=== PATIENT | female | born 1985 | race Caucasian/White ===

== ENCOUNTER 2017-04-20 16:53 | Emergency (ER) | payer SELFPAY ==
[~2017-04-20 16:53] MED LIST: ISOVUE-370 76%-LOCM 1 ML ONE; Iopamidol 370 76% 50 ML VIAL FS ONE
[2017-04-20 17:38] LABS: #Basophils 0.1 thou/uL (0.0-0.2); #Eosinphils 0.2 thou/uL (0.0-0.7); #Lymphocytes 2.2 thou/uL (1.20-3.40); #Monocytes 0.5 thou/uL (0.11-0.59); %Basophils 0.5 % (0.0-1.0); %Eosinophils 1.4 % (0.0-10.0); %Lymphocytes 18.7 % (21.0-51.0); %Monocytes 3.9 % (0.0-10.0); Hematocrit 34.1 % (36.0-47.0); Mean Platelet Volume 7.7 fL (7.4-10.4); Red Blood Cell (RBC) Count 4.23 mill/uL (4.20-5.40); White Blood Cell (WBC) Count 11.9 thou/uL (4.8-10.8)
[2017-04-20 17:59] LABS: Lactic Acid - Sepsis 2.1 mmol/L (0.5-2.2)
[2017-04-20 18:06] LABS: ALT (SGPT) Less than 7 U/L (8-55); AST (SGOT) 9 U/L (5-34); Alkaline Phosphatase 78 U/L (40-150); Anion Gap 16 mmol/L (10-20); BUN (Urea Nitrogen) 13 mg/dL (7.0-18.7); Bilirubin, Total 0.4 mg/dL (0.2-1.2); CK (CPK) 66 U/L (29-168); Calc. Creatinine Clearance 0 mL/min (70-130); Calcium 10.3 mg/dL (7.8-10.44); Carbon Dioxide 28 mmol/L (22-29); Chloride 100 mmol/L (98-107); Estimated GFR-MDRD 82; Globulin 4.5 g/dL (2.4-3.5); Lipase 17 U/L (8-78); Protein, Total 8.9 g/dL (6.0-8.3)
[2017-04-20 18:15] LABS: Bilirubin Moderate (Negative); Blood, Urine Small (Negative); Glucose, Urine (Dipstick) Negative (Negative); Ketone, Urine 15 mg/dL (Negative); Nitrite Negative (Negative); Protein, Urine (Dipstick) 30 mg/dL (Neg-Trace); Urobilinogen 0.2 mg/dL (0.2-1.0)
[2017-04-20 18:25] LABS: Bacteria/HPF 4+ HPF (None Seen)
[2017-04-20 18:35] LABS: RBC/HPF 0-3 HPF (0-3)
[2017-04-20 18:36] LABS: Hyaline Casts/LPF 0-3 HYALINE CAST LPF (0-3 Hyaline)
--- NOTE | 2017-04-20 19:51 | RAD ---
AP VIEW CHEST WELL SUPINE AND UPRIGHT VIEWS ABDOMEN 04/20/17 HISTORY: Constipation for three weeks. AP view chest as well as supine and upright views of the abdomen is obtained. The lungs are well aerated. No evidence of active intrathoracic disease is seen. No evidence of effus ions, pneumonia or pneumothorax seen. ' Two views abdomen demonstrates abdominal gas pattern to be nonspecific. No evidence of obstruction or ileus seen. No dilated loops of bowel seen. IMPRESSION: Unremarkable AP view chest and two views abdomen. Moderate amount of stool is seen in the colon. Inci dentally noted S-shaped thoracolumbar scoliosis is also present. POS: [facility]
--- NOTE | 2017-04-20 22:11 | CT ---
CT OF ABDOMEN AND PELVIS WITH CONTRAST 04/20/17 INDICATION: Intermittent abdominal pain with vomiting. FINDINGS: There is normal caliber of contrast opacified small bowel. A prominent degree of retained fecal mater ial is present throughout the colon. the appendix is not well delineated. No acute abnormality of the solid abdominal organs. Imaged lung bases are clear. No free air. There is extensive wall thickening of the stomach notably at the distal body extending through the region of the pylorus and antral reg ion. This indicates a prominent degree of wall thickening from gastritis. An underlying mass is not e xcluded. No acute osseous pathology. IMPRESSION: 1. Extensive abnormal wall thickening of the stomach. This may relate to an inflammatory gastrit is. The possibility of underlying neoplasm is not excluded. Correlation with gastroenterology consult ation for endoscopy to further assess with direct visualization is warranted. 2. Constipation. 3. Nondelineation of the appendix precluding its assessment. POS: [facility]
[2017-04-20] MEDS ORDERED: Lidocaine Viscous Sol 2% 15 ml UD Cup ONE (22:42)
[2017-04-20] MEDS ORDERED: Mag-Al 1200 mg/1200 mg/30 ML UDCUP ONE (22:42)
== END 2017-04-20 22:50 | disposition home or self-care (01) ==
LOC: ERS 16:53
DX: K29.70 Gastritis, unspecified, without bleeding (principal); F90.9 Attention-deficit hyperactivity disorder, unspecified type; Z79.899 Other long term (current) drug therapy
CPT/HCPCS: 36415; 74022; 74177; 80053; 81003; 81015; 81025; 82150; 82550; 83605; 83690; 85025; 96372

== ENCOUNTER 2018-10-09 00:44 | Inpatient (IN) | payer SELFPAY ==
[2018-10-09 01:16] LABS: Bilirubin Small (Negative); Blood, Urine Large (Negative); Clarity CLOUDY (Clear); Glucose, Urine (Dipstick) Negative (Negative); Leukocyte Negative (Negative); Nitrite Negative (Negative); Protein, Urine (Dipstick) 30 mg/dL (Neg-Trace); Specific Gravity, Urine 1.036 (1.002-1.036)
[2018-10-09] MEDS ORDERED: Lidocaine Viscous Sol 2% 15 ml UD Cup ONE (01:17)
[2018-10-09] MEDS ORDERED: Pantoprazole 40 MG VIAL ONE (01:17)
[2018-10-09] MEDS ORDERED: Ondansetron PF 4 MG/2 ML Vial ONE (01:17)
[2018-10-09] MEDS ORDERED: Mag-Al 1200 mg/1200 mg/30 ML UDCUP ONE (01:17)
[2018-10-09 01:18] LABS: Bacteria/HPF 1+ HPF (None Seen); WBC/HPF 21-50 HPF (0-3)
[2018-10-09 01:23] LABS: ALT (SGPT) 7 U/L (8-55); AST (SGOT) 8 U/L (5-34); Albumin 4.5 g/dL (3.5-5.0); Alkaline Phosphatase 77 U/L (40-150); Anion Gap 14 mmol/L (10-20); BUN (Urea Nitrogen) 9 mg/dL (7.0-18.7); Bilirubin, Total 0.8 mg/dL (0.2-1.2); Calc. Creatinine Clearance 0 mL/min (70-130); Calcium 9.7 mg/dL (7.8-10.44); Carbon Dioxide 27 mmol/L (22-29); Chloride 100 mmol/L (98-107); Estimated GFR-MDRD 90; Globulin 3.4 g/dL (2.4-3.5); Glucose 118 mg/dL (70-105); Lipase 10 U/L (8-78); Potassium 3.6 mmol/L (3.5-5.1); Protein, Total 7.9 g/dL (6.0-8.3); Sodium 137 mmol/L (136-145)
[2018-10-09 01:25] LABS: Pathc Cast-AUWi Flag 2.85 (0-2.49); Pregnancy Test - Urine (BHCG) Negative (Negative); Pregu Control Background? CLEAR/WHITE (CLR/WHITE); Pregu Control Bar Appear? YES (CONTROL BAR); Specific Gravity 1.036 (1.002-1.036)
[2018-10-09 01:33] LABS: Hyaline Casts/LPF NONE SEEN LPF (0-3 Hyaline); RBC/HPF None Seen HPF (0-3)
[2018-10-09 01:38] LABS: #Basophils 0.1 thou/uL (0.0-0.2); #Eosinphils 0.1 thou/uL (0.0-0.7); #Lymphocytes 2.3 thou/uL (1.20-3.40); #Monocytes 0.7 thou/uL (0.11-0.59); #Neutrophils 9.1 thou/uL (1.40-6.50); %Basophils 0.5 % (0.0-1.0); %Eosinophils 0.8 % (0.0-10.0); %Lymphocytes 18.6 % (21.0-51.0); %Monocytes 5.4 % (0.0-10.0); %Neutrophils 74.8 % (42.0-75.0); Anisocytosis MODERATE=16-30 cells (100X) (0-5/hpf); Elliptocytes SLIGHT = 2-5 cells (100X) (0-1/hpf); Hemoglobin 6.4 g/dL (12.0-16.0); Hypochromia SLIGHT = 6-15 cells (100X) (0-5/hpf); MDiff Complete? YES; Mean Corpuscular HGB CONC 27.1 g/dL (32.0-36.0); Mean Corpuscular Hemoglobin 17.1 pg (27.0-31.0); Mean Corpuscular Volume 63.3 fL (78.0-98.0); Mean Platelet Volume 10.6 fL (7.4-10.4); Microcytosis MODERATE=15-30 cells (100X) (0-5/hpf); Platelet Count 534 thou/uL (130-400); RBC Distribution Width 17.9 % (11.5-14.5); Red Blood Cell (RBC) Count 3.74 mill/uL (4.20-5.40); Reflex for Review?? YES; White Blood Cell (WBC) Count 12.2 thou/uL (4.8-10.8)
[2018-10-09 03:56] VITALS: BMI 19.4
[2018-10-09] MEDS ORDERED: Sodium Chloride 0.9% 1,000 ML IV SCH (04:05)
[2018-10-09] MEDS ORDERED: Ondansetron PF 4 MG/2 ML Vial IVP PRN (07:24)
[2018-10-09] MEDS ORDERED: GoLYTELY 4,000 ml Bottle PO SCH (07:45)
[2018-10-09] MEDS: Pantoprazole 40 MG VIAL IVP SCH ×2 (08:09→20:22)
[2018-10-09 11:59] LABS: #Eosinphils 0.2 thou/uL (0.0-0.7); #Lymphocytes 1.8 thou/uL (1.20-3.40); #Monocytes 0.7 thou/uL (0.11-0.59); #Neutrophils 7.4 thou/uL (1.40-6.50); %Basophils 0.2 % (0.0-1.0); %Eosinophils 1.8 % (0.0-10.0); %Lymphocytes 18.1 % (21.0-51.0); %Monocytes 6.9 % (0.0-10.0); %Neutrophils 72.9 % (42.0-75.0); Hemoglobin 8.2 g/dL (12.0-16.0); Mean Corpuscular HGB CONC 30.6 g/dL (32.0-36.0); Mean Corpuscular Hemoglobin 21.5 pg (27.0-31.0); Mean Corpuscular Volume 70.1 fL (78.0-98.0); Mean Platelet Volume 10.1 fL (7.4-10.4); Platelet Count 343 thou/uL (130-400); RBC Distribution Width 21.1 % (11.5-14.5); Red Blood Cell (RBC) Count 3.82 mill/uL (4.20-5.40); White Blood Cell (WBC) Count 10.1 thou/uL (4.8-10.8)
[2018-10-09 12:38] LABS: Hypochromia MODERATE=16-30 cells (100X) (0-5/hpf); MDiff Complete? YES; Microcytosis MODERATE=15-30 cells (100X) (0-5/hpf); Ovalocytes SLIGHT = 2-5 cells (100X) (0-1/hpf); Platelet Morphology Comment Appears Adequate; Polychromasia MODERATE = 3-4 cells (100X) (0-2/hpf)
--- NOTE | 2018-10-09 12:59 | HP ---
HISTORY OF PRESENT ILLNESS: The patient is a 33-year-old female, who presented to the emergency room complaining of upper abdominal pain and discomfort. She states she has had a previous history of gastritis. She states she has been scoped one time. She has no prior history of gastric bleeding. She was found to be severely anemic with no history of reportable melena. She reports multiple episodes of vomiting over the last 4 days. Denies any hematemesis or any coffee-ground material through her vomitus. She reports that she had to come to the hospital soon, because the pain became too acute to manage. She states that she has had a recent history of severe weakness, felt like she does not have greater endurance. She notes that she is getting tired when walking long distances. She notes that she has some heavy periods. In the last 3 to 4 days, she reports some abdominal pain associated with vomiting. No diarrhea. No blood per bowel movement. No hematemesis was noted. She was seen and evaluated in the ER. She has not noted any fever, productive coughing. No recent travel. It is noted that she does take Excedrin fairly frequently. She denies any history of severe alcohol use or abuse. She was given a GI cocktail, which she states relieved her pain almost immediately. She subsequently has been admitted for further evaluation and treatment. She was begun on 1 unit of transfused blood thus far. ALLERGIES: NO KNOWN ALLERGIES. CURRENT MEDICATIONS: 1. Adderall. 2. Prilosec. PAST MEDICAL HISTORY: Medical history is insignificant. PAST SURGICAL HISTORY: Positive for LEEP procedure as well as tubes in ears. SOCIAL PERSONAL HISTORY: She does not smoke. She denies drinking alcohol at this time. Denies drug use. REVIEW OF SYSTEMS: She believes she is not at this time. FAMILY HISTORY: Noncontributory. PHYSICAL EXAMINATION: VITAL SIGNS: Temperature is 97.3, respirations 16, O2 saturation 97%, blood pressure 103/64, and pulse 77 and regular. GENERAL: The patient is alert, active, in no acute distress. HEENT: Normocephalic and atraumatic. Sclerae and conjunctivae are clear. Throat clear. NECK: Supple. Full range of motion. No masses. ABDOMEN: Soft and nontender. Bowel sounds are present and active. There is no hepatosplenomegaly noted. No evidence of rebound or guarding. LUNGS: Clear. HEART: Reveals a regular rate and rhythm. No murmurs, gallops, or rubs. ABDOMEN: Soft. EXTREMITIES: No clubbing, edema, or cyanosis. NEUROLOGICAL: She is alert and oriented x3. LABORATORY DATA: Her white blood count is 12.2, hemoglobin 6.4, hematocrit 23.7, and platelet count 534,000. Chemistries; sodium 137, potassium 3.6, chloride 100, CO2 of 27, BUN 9, and creatinine 0.74. Urinalysis is otherwise clear. Fecal blood test is positive. IMPRESSION: A 33-year-old female, who is severely anemic, probably suffering from some type of gastrointestinal bleeding, although it could be the probability that she is anemic and having some gastrointestinal bleeding as well. Her anemia seems to be little bit further problematic than the amount of gastrointestinal bleeding she would be experiencing this time. Nonetheless, I do think she gets gastrointestinal bleeding transfusion protocol, for which she is getting 1 unit of blood. We are going to give her 2 units of blood today. Repeat CBC after 2nd transfusion. She will get GI consult, probably will need some type of scoping, endoscopy either today or tomorrow. We will continue to follow her serial H and H's and keep her on IV Protonix at this time as well. I have explained the situation and the patient verbalizes understanding. Job ID: [id number]
[2018-10-09] MEDS ORDERED: Bisacodyl 10 MG SUPP PR SCH (13:15)
--- NOTE | 2018-10-09 14:03 | CON ---
DATE OF CONSULTATION: 10/09/2018 CHIEF COMPLAINT: Severe weakness and abdominal pain. HISTORY OF PRESENT ILLNESS: Ms. James is a 33-year-old woman, who was admitted through the emergency room today with severe anemia. She came to the emergency room back in April of [address] scan of the abdomen and pelvis at that time. This showed extensive wall thickening of the stomach. Constipation was also noted. She was started on Prilosec [id number] at that time, when she takes most days over the last year and a half. She has gained 5 or 6 pounds since that time. Two or three days ago, she developed aching epigastric pain that radiated up to her substernal region. The pain was severe. She had some nausea and vomiting associated with that yesterday. She already feels much better today after having received blood transfusion. She was found to have severe anemia in the emergency room with a hemoglobin of 6.4. She states that over the last couple of months while riding her bike to work, she gets short of breath and feels very weak after exertion. She has had no black stools or red stools. She has had some intermittent abdominal pain and reflux, but the current pain that started yesterday was more severe. She has had no diarrhea or constipation otherwise that she reports. She has been taking Excedrin two pills twice daily over the last several years for chronic headaches. PAST MEDICAL HISTORY: Chronic headaches and ADHD, for which she occasionally takes Adderall. PAST SURGICAL HISTORY: LEEP procedure for HPV. She has had tubes for ears as well, as a child. SOCIAL HISTORY: She quit smoking a year ago. No drugs or alcohol. FAMILY HISTORY: Negative for GI malignancy. ALLERGIES: NO KNOWN DRUG ALLERGIES. MEDICATIONS: Prior to admission; 1. Prilosec [id number], which she takes most days. 2. Occasional Adderall. 3. Excedrin two tablets twice a day. Sometimes she substitutes a couple of ibuprofen instead. REVIEW OF SYSTEMS: Negative x10 systems reviewed except as stated in the history of present illness. PHYSICAL EXAMINATION: VITAL SIGNS: Temperature 98.3, blood pressure 108/67, and pulse 71. GENERAL: She is in no acute distress. Alert and oriented x3. HEENT: Eyes, have no scleral icterus. Oropharynx is clear without lesions. No cervical or supraclavicular lymphadenopathy. LUNGS: Clear to auscultation bilaterally. HEART: Regular rate and rhythm without murmur. ABDOMEN: Soft, nontender, and nondistended. Bowel sounds are present. She states she did have significant abdominal tenderness in the epigastric region more yesterday. EXTREMITIES: No lower extremity edema. NEUROLOGIC: Cranial nerves are grossly intact. LABORATORY DATA: White blood cell count 10.1, hemoglobin is 8.2 after 2 units transfusion. Prior to transfusion, her hemoglobin was 6.4. Platelet count is 343 and MCV 63. IMPRESSION: 1. Severe iron deficiency anemia that has been progressively increasingly symptomatic over the last month. She does not have overt gastrointestinal bleeding. She does take Excedrin and ibuprofen a couple tablets couple times a day for chronic headaches and certainly could have peptic ulcer disease. She had a CT scan in April of 2017 that showed diffuse gastric thickening. We will need to rule out a neoplastic process in the stomach as well as peptic ulcer disease. 2. Epigastric pain. RECOMMENDATIONS: 1. Check iron studies. 2. EGD and colonoscopy. Job ID: [id number]
[2018-10-09 14:15] LABS: #Eosinphils 0.1 thou/uL (0.0-0.7); #Monocytes 0.6 thou/uL (0.11-0.59); #Neutrophils 7.3 thou/uL (1.40-6.50); %Basophils 0.4 % (0.0-1.0); %Eosinophils 1.5 % (0.0-10.0); %Lymphocytes 19.9 % (21.0-51.0); %Monocytes 6.3 % (0.0-10.0); Hemoglobin 8.5 g/dL (12.0-16.0); Mean Corpuscular HGB CONC 29.1 g/dL (32.0-36.0); Mean Corpuscular Hemoglobin 20.6 pg (27.0-31.0); Mean Corpuscular Volume 70.6 fL (78.0-98.0); Mean Platelet Volume 10.5 fL (7.4-10.4); Platelet Count 348 thou/uL (130-400); RBC Distribution Width 21.1 % (11.5-14.5); Red Blood Cell (RBC) Count 4.15 mill/uL (4.20-5.40); White Blood Cell (WBC) Count 10.1 thou/uL (4.8-10.8)
[2018-10-09 14:43] LABS: Anisocytosis MODERATE=16-30 cells (100X) (0-5/hpf); Hypochromia SLIGHT = 6-15 cells (100X) (0-5/hpf); Large Platelets SLIGHT; MDiff Complete? YES; Microcytosis SLIGHT = 6-15 cells (100X) (0-5/hpf); Ovalocytes SLIGHT = 2-5 cells (100X) (0-1/hpf); Platelet Morphology Comment Appears Adequate; Poikilocytosis SLIGHT = 6-15 cells (100X) (0-5/hpf); Polychromasia SLIGHT = 2-3 cells (100X) (0-2/hpf); Schistocytes SLIGHT = 2-5 cells (100X) (0-1/hpf); Spherocytes SLIGHT = 1-5 cells (100X) (None Seen); Tear Drops SLIGHT = 2-5 cells (100X) (0-1/hpf)
[2018-10-09 16:07] LABS: Iron 18 ug/dL (50-170); Iron Binding Capacity, Total 386 mcg/dL (265-497)
[2018-10-09] MEDS ORDERED: PROPOFOL 200 MG/20 ML VIAL ONE (16:07)
[2018-10-09] MEDS ORDERED: Lidocaine 1% PF 5 ML VIAL ONE (16:07)
[2018-10-09] MEDS ORDERED: Ondansetron HCl/PF 4 MG/2 ML Vial IVP PRN (18:32)
[2018-10-09] MEDS ORDERED: Promethazine HCl 25 MG/ML VIAL IM PRN (18:32)
[2018-10-09] MEDS ORDERED: Promethazine HCl 25 MG/ML VIAL SLOW IVP PRN (18:32)
--- NOTE | 2018-10-10 00:51 | OP ---
DATE OF PROCEDURE: 10/09/2018 PROCEDURE PERFORMED: Esophagogastroduodenoscopy with biopsy. PREOPERATIVE DIAGNOSIS: Severe iron deficiency anemia. DESCRIPTION OF PROCEDURE: Informed consent was obtained from the patient. She was sedated with total intravenous anesthesia. The bite block was placed and the endoscope was advanced easily to the second portion of the duodenum and retroflexion was performed in the stomach. The esophagus was normal. The GE junction was normal. The stomach had a large ulcer in the antrum. A 60% to 70% of the circumference of the entire antrum is one large ulcer with the inferior wall being spared. Biopsies were obtained from the ulcer edges to rule out Helicobacter pylori and neoplastic issue. The pylorus and first and second portions of the duodenum were normal. The patient was turned around. Rectal exam was performed and was normal. The colonoscope was advanced to the cecum, where the ileocecal valve and appendiceal orifice were clearly identified. The preparation quality was fair. The colonic mucosa was normal throughout. Retroflexed views in the rectum were normal. IMPRESSION: 1. Large ulcer in the antrum. A 60% to 70% of the circumference of the entire antrum is one large ulcer with the inferior wall being spared. Biopsies were obtained from the ulcer edges to rule out Helicobacter pylori and neoplastic process. 2. Otherwise normal EGD. 3. Normal colonoscopy with fair prep. RECOMMENDATIONS: 1. Proton pump inhibitor twice daily. 2. Discontinue NSAIDs and aspirin. 3. Await histopathology. Rule out Helicobacter pylori. 4. Advance diet. 5. Iron supplementation orally. 6. Follow up in GI clinic. Repeat endoscopy in 6 weeks to evaluate healing. Job ID: [id number]
[2018-10-10] MEDS: Pantoprazole 40 MG VIAL IVP SCH (07:56)
--- NOTE | 2018-10-10 10:32 | PRG ---
DATE OF SERVICE: 10/10/2018 SUBJECTIVE: The patient is doing well after the scope. She had a large antral ulcer that was noted. This was biopsied. She has had no further bleeding. OBJECTIVE: VITAL SIGNS: Her BP is 105/64. LUNGS: Clear. HEART: Reveals a regular rate and rhythm. No murmurs, gallops, or rubs. LABORATORY DATA: Hemoglobin 8.5 with microcytic indices. IMPRESSION: Gastrointestinal bleed with large antral ulcer. PLAN: She is still on IV pantoprazole, we will switch her to orals. Probably can discharge later this afternoon. Job ID: [id number]
[2018-10-10 12:22] VITALS: BP 115/72; TEMP 98.5
--- NOTE | 2018-10-10 22:12 | DIS ---
DATE OF ADMISSION: 10/09/2018 DATE OF DISCHARGE: 10/10/2018 DISCHARGE DIAGNOSES: 1. Upper GI bleed. 2. Anemia secondary to upper GI bleed. 3. Abdominal pain. CONSULTING PHYSICIAN: Dr. Rufus Salinas. HOSPITAL SUMMARY: The patient is a 33-year-old female who presented to the emergency room complaining of right upper quadrant abdominal pain. She was seen and evaluated in the ER, found to be profoundly anemic. She was begun on transfusion protocol due to anemia of 6.4. Her fecal occult blood test was positive. She underwent EGD as well as colonoscopy. EGD showed a large ulcer in the antrum of approximately 67% covering the entire antrum is noted. Biopsies were obtained. Colonoscopy was noted to be normal otherwise. She tolerated all oral intake after that. She will be discharged home on pantoprazole 40 mg p.o. b.i.d. as well as Slow iron one tablet p.o. daily. She will be seen back in followup by myself in approximately 1 week. At the time of discharge, she was advised not to take any aspirin, Aleve, Advil, other nonsteroidal anti-inflammatory agents, alcohol, or acidic beverages such as orange juice and lemonade. The patient verbalized full understanding of these instructions. Follow up with me in 1 week. Job ID: [id number]
== END 2018-10-10 12:57 | disposition home or self-care (01) | DRG 379 ==
LOC: ERS 00:44 → T4-A 03:48
PROVIDERS: ADMIT Family Medicine; ATTEND Family Medicine
PROC: 30233N1 Transfusion of Nonautologous Red Blood Cells into Peripheral Vein, Percutaneous Approach (ICD-10-PCS; 2018-10-09)
PROC: 0DB78ZX Excision of Stomach, Pylorus, Via Natural or Artificial Opening Endoscopic, Diagnostic (ICD-10-PCS; principal; 2018-10-10)
PROC: 0DJD8ZZ Inspection of Lower Intestinal Tract, Via Natural or Artificial Opening Endoscopic (ICD-10-PCS; 2018-10-10)
DX: K25.4 Chronic or unspecified gastric ulcer with hemorrhage (principal); D50.0 Iron deficiency anemia secondary to blood loss (chronic); K59.00 Constipation, unspecified; F90.9 Attention-deficit hyperactivity disorder, unspecified type; Z87.891 Personal history of nicotine dependence
CPT/HCPCS: 36415; 36430; 80053; 81003; 81015; 81025; 82274; 82728; 83540; 83550; 83690; 85025; 85060; 86850; 86900; 86901; 87086; 88305; 88312; C9113; J2001; J2405; J2704; P9016

== ENCOUNTER 2018-11-14 21:59 | Emergency (ER) | payer SELFPAY ==
[2018-11-14] MEDS ORDERED: Lidocaine Viscous Sol 2% 15 ml UD Cup ONE (22:30)
[2018-11-14] MEDS ORDERED: Mag-Al 1200 mg/1200 mg/30 ML UDCUP ONE (22:30)
[2018-11-14] MEDS ORDERED: Ondansetron ODT 4 MG TAB ONE (22:30)
[2018-11-14 22:42] LABS: Hemoglobin 13.8 g/dL (12.0-16.0); Mean Corpuscular HGB CONC 30.5 g/dL (32.0-36.0); Mean Corpuscular Hemoglobin 25.8 pg (27.0-31.0); Mean Corpuscular Volume 84.8 fL (78.0-98.0); Mean Platelet Volume 10.4 fL (7.4-10.4); Platelet Count 336 thou/uL (130-400); RBC Distribution Width 23.4 % (11.5-14.5); Red Blood Cell (RBC) Count 5.35 mill/uL (4.20-5.40); White Blood Cell (WBC) Count 12.3 thou/uL (4.8-10.8)
[2018-11-14 22:53] LABS: #Eosinphils 0.3 thou/uL (0.0-0.7); #Lymphocytes 2.2 thou/uL (1.20-3.40); #Monocytes 0.5 thou/uL (0.11-0.59); #Neutrophils 9.3 thou/uL (1.40-6.50); %Basophils 0.3 % (0.0-1.0); %Eosinophils 2.5 % (0.0-10.0); %Neutrophils 75.3 % (42.0-75.0); Anisocytosis SLIGHT = 6-15 cells (100X) (0-5/hpf); MDiff Complete? YES
[2018-11-14 22:56] LABS: BHCG - Serum Negative (NEGATIVE); Pregs Control Background? CLEAR/WHITE (CLR/WHITE); Pregs Control Bar Appear? YES (CONTROL BAR)
[2018-11-14 22:59] LABS: ALT (SGPT) 7 U/L (8-55); AST (SGOT) 11 U/L (5-34); Alkaline Phosphatase 67 U/L (40-150); Anion Gap 15 mmol/L (10-20); BUN (Urea Nitrogen) 9 mg/dL (7.0-18.7); Bilirubin, Total 1.1 mg/dL (0.2-1.2); Calc. Creatinine Clearance 0 mL/min (70-130); Calcium 10.2 mg/dL (7.8-10.44); Carbon Dioxide 28 mmol/L (22-29); Chloride 98 mmol/L (98-107); Estimated GFR-MDRD 85; Globulin 3.4 g/dL (2.4-3.5); Glucose 100 mg/dL (70-105); Potassium 3.6 mmol/L (3.5-5.1); Protein, Total 8.4 g/dL (6.0-8.3); Sodium 137 mmol/L (136-145)
== END 2018-11-14 23:12 | disposition home or self-care (01) ==
LOC: ERS 21:59
DX: K20.9 Esophagitis, unspecified (principal); F90.9 Attention-deficit hyperactivity disorder, unspecified type; Z79.899 Other long term (current) drug therapy
CPT/HCPCS: 36415; 80053; 84703; 85025; 86850; 86900; 86901; 99284; Q0162

== ENCOUNTER 2021-12-05 00:38 | Emergency (ER) | payer SELFPAY ==
[2021-12-05] MEDS ORDERED: Ondansetron PF 4 MG/2 ML Vial ONE (01:17)
[2021-12-05] MEDS ORDERED: Lidocaine Viscous Sol 2% 15 ml UD Cup ONE (01:30)
[2021-12-05] MEDS ORDERED: Mag-Al 1200 mg/1200 mg/30 ML UDCUP ONE (01:30)
[2021-12-05 01:38] LABS: #Eosinphils 0.1 thou/uL (0.0-0.7); #Lymphocytes 1.3 thou/uL (1.20-3.40); #Monocytes 0.4 thou/uL (0.11-0.59); #Neutrophils 3.7 thou/uL (1.40-6.50); %Basophils 0.1 % (0.0-1.0); %Eosinophils 1.6 % (0.0-10.0); %Lymphocytes 23.1 % (21.0-51.0); %Monocytes 6.5 % (0.0-10.0); %Neutrophils 68.7 % (42.0-75.0); Hemoglobin 14.4 g/dL (12.0-16.0); Mean Corpuscular Hemoglobin 30.6 pg (27.0-31.0); Mean Corpuscular Volume 92.9 fL (78.0-98.0); Mean Platelet Volume 7.9 fL (7.4-10.4); Platelet Count 228 thou/uL (130-400); RBC Distribution Width 11.9 % (11.5-14.5); White Blood Cell (WBC) Count 5.4 thou/uL (4.8-10.8)
[2021-12-05 01:47] LABS: BHCG - Serum Negative (NEGATIVE); Pregs Control Background? CLEAR/WHITE (CLR/WHITE); Pregs Control Bar Appear? YES (CONTROL BAR)
[2021-12-05 02:06] LABS: AST (SGOT) 39 U/L (5-34); Albumin 4.1 g/dL (3.5-5.0); BUN (Urea Nitrogen) 12 mg/dL (7.0-18.7); Bilirubin, Total 0.4 mg/dL (0.2-1.2); Calc. Creatinine Clearance 0 mL/min (70-130); Calcium 9.4 mg/dL (7.8-10.44); Chloride 100 mmol/L (98-107); Estimated GFR 113; Globulin 3.4 g/dL (2.4-3.5); Glucose 106 mg/dL (70-105); Lipase 26 U/L (8-78); Potassium 3.5 mmol/L (3.5-5.1); Protein, Total 7.5 g/dL (6.0-8.3); Sodium 141 mmol/L (136-145)
[2021-12-05 02:37] LABS: Bilirubin Negative (Negative); Blood, Urine Negative (Negative); Clarity Turbid (Clear); Glucose, Urine (Dipstick) Normal (Negative); Ketone, Urine Negative (Negative); Leukocyte 500 Leu/uL (Negative); Nitrite Negative (Negative); Protein, Urine (Dipstick) 30 mg/dL (Neg-Trace); Specific Gravity, Urine 1.031 (1.002-1.036); WBC/HPF Greater than 50 HPF (0-3)
[2021-12-05 02:40] LABS: Bacteria/HPF Rare-Few HPF (None Seen)
[2021-12-05 03:01] LABS: ALT (SGPT) 45 U/L (8-55); Alkaline Phosphatase 61 U/L (40-110); Anion Gap 16 mmol/L (10-20); Carbon Dioxide 29 mmol/L (22-29)
[2021-12-05] MEDS ORDERED: Sucralfate 1 GM/10 ML UDCUP ONE (03:19)
[2021-12-05] MEDS ORDERED: Iopamidol-370 76% 500 ML 1 ML ONE (15:42)
== END 2021-12-05 03:57 | disposition home or self-care (01) ==
LOC: ERS 00:38
DX: K29.70 Gastritis, unspecified, without bleeding (principal); Z79.899 Other long term (current) drug therapy
CPT/HCPCS: 74177; 80053; 81003; 81015; 83690; 84703; 85025; 96361; 96374; J2405; Q9967

== ENCOUNTER 2023-05-09 15:57 | Emergency (ER) | payer SELFPAY | END 2023-05-09 17:49 | disposition home or self-care (01) | LOC: ERS 15:57 | DX: S00.03XA Contusion of scalp, initial encounter (principal); R42 Dizziness and giddiness; Z87.891 Personal history of nicotine dependence; W21.04XA Struck by golf ball, initial encounter; Y93.53 Activity, golf | CPT/HCPCS: 70450 ==